=== PATIENT | male | born 1985 | race Two or more races ===

== ENCOUNTER 2020-04-27 13:19 | Outpatient (REF) | payer SELFPAY | END 2020-04-27 13:20 | disposition home or self-care (01) | LOC: HO.LAB 13:19 | PROVIDERS: Visit Provider Internal Medicine | DX: Z20.828 Contact with and (suspected) exposure to other viral communicable diseases (principal) | CPT/HCPCS: 87635 ==

== ENCOUNTER 2020-06-04 13:24 | Emergency (ER) | payer OTHER, SELFPAY ==
[2020-06-04 13:53] VITALS: BP 134/85; PULSE 81; RESP 18; TEMP 36.9; O2SAT 97; BMI 36.1
--- NOTE | 2020-06-04 14:22 | ED.HA ---
HPI - Headache General Chief Complaint: Headache Stated Complaint: headache,pain to neck Time Seen by Provider: 06/04/20 14:20 Source: patient Mode of arrival: ambulatory Limitations: no limitations History of Present Illness HPI Narrative: Patient presents to ED for right-sided headache going down to right occipital headache since yesterday. Patient states no photophobia, neck stiffness, fever, chills, loss of vision, eye pain, or, recent head trauma. MD elicited complaint: headache Related Data Previous Rx's Medication Instructions Recorded naproxen 500 mg PO BID PRN #20 tab 06/04/20 Allergies Allergy/AdvReac Type Severity Reaction Status Date / Time No Known Allergies Allergy Verified 06/04/20 13:55 Review of Systems Review of Systems: Yes all other systems are reviewed and are negative Constitutional: Constitutional: Reports as per HPI, Reports no additional constitutional complaints and Reports headache(s) Eyes: Eyes: Reports as per HPI and Reports no additional eye complaints ENT: Reports system reviewed and no additional complaints, except as documented, Reports as per HPI, Reports headache(s) and Reports neck pain Cardiovascular: Cardiovascular: Reports as per HPI and Reports no additional cardiovascular complaints Respiratory: Respiratory: Reports as per HPI and Reports no additional respiratory complaints Gastrointestinal: Gastrointestinal: Reports as per HPI and Reports no additional gastrointestinal complaints Musculoskeletal: Musculoskeletal: Reports no additional musculoskeletal complaints, Reports as per HPI and Reports neck pain Neurologic: Reports system reviewed and no additional complaints, except as documented, Reports as per HPI and Reports headache(s) Psychiatric: Psychiatric: Reports no additional psychiatric complaints and Reports as per HPI [facility], [facility] Past Medical History Medical History (Updated 06/04/20 @ 14:44 by KEVIN De Jesus) Anxiety Depression Social History Social History Advance Directives: No Advance Directives Information Provided: No Physical Exam Vital Signs: Vital Signs: Last Vital Signs Temp 98.5 F 06/04/20 13:53 Pulse 81 06/04/20 13:53 Resp 18 06/04/20 13:53 BP 134/85 06/04/20 13:53 Pulse Ox 97 06/04/20 13:53 Body Mass Index 36.1 Const: General: cooperative, healthy appearing, comfortable, no acute distress, well developed, alert, awake and Physically active Orientation/consciousness: oriented to time and patient oriented x3 HENMT: Head: Yes normal to inspection, Yes No palpable skull fracture present, Yes atraumatic, No Voss's sign, No contusion, No cranial bruits, No hematoma, No laceration, No occipital foramen tenderness, No palpable skull fracture, No raccoon eyes, No scalp lesion, No scalp tenderness, No Temporal artery tenderness present, No periorbital ecchymosis and No other Ears: hearing grossly normal bilaterally, external ears normal and TM's normal bilaterally General nose exam: Normal external nose present and Normal nares present Face and sinus: Yes normal facial exam and Yes sinuses nontender Mouth: Normal oral and palatal mucosa present, lip normal, tongue normal, oropharynx normal and moist mucous membranes Teeth and gingiva: dentition normal and gingiva normal Throat: Yes posterior oropharynx normal, Yes tonsils normal and Yes uvula midline Eyes: Other: negative for photophobia. General: appearance normal, both eyes and all related structures Neck: Neck: Yes normal visual inspection, Yes full ROM, Yes no lymphadenopathy, Yes no meningeal signs, Yes trachea midline, Yes supple and No tender Chest: Chest palpation & inspection: normal inspection of the chest, normal palpation of entire chest wall and no localized rib tenderness Resp: Effort & Inspection: normal respiratory effort and able to speak in complete sentences Auscultation: clear to auscultation bilaterally Cardio: Jugular venous distension: no JVD Heart sounds: S1 normal heart sound present and S2 normal heart sound present GI: Inspection: Yes normal to inspection and No abdominal wall ecchymosis Palpation (GI): Soft to palpation, not firm, nontender, no guarding and not rigid : General: No CVA tenderness and Yes no CVA tenderness Back/Spine/Pelvis: Back: no CVA tenderness, No CVA tenderness and No back tenderness Skin: General skin exam: no rashes or lesions noted Neuro: Other: Negative for facial droop. negative pronator drift. Cerebellar exams are intact. Normal gait. Negative neuro deficit. General: oriented to time, patient oriented x3, gait normal, no meningeal signs and CN's II-XI intact bilaterally Cranial nerves: Yes CN's II-XII intact bilaterally Course Course Course Narrative: History physical exam indicate tension headache. History physical exam does not indicate meningitis, migraine, tonsillitis, otitis media/externa, dental infection, glaucoma, or temporal arthritis. Patient denies any recent trauma and head CT not indicated. Negative for any neuro deficit. Patient also educated due to COVID headache can also be considered a new COVID symptom, so patient requested to be tested for COVID. Reevaluation(s) Reevaluation #1: Patient tested for COVID and will be discharged with NSAIDs for pain. Time: 14:41 MDM - Headache MDM Narrative Medical decision making narrative: tension headache Discharge Plan Discharge Clinical Impression: Tension headache Patient Disposition: Home, Self-Care Instructions: Tension Headache (ED) Additional Instructions: return to the ED for worsening headache, phonophobia, nausea, vomiting, neck stiffness, dizziness, fever, chills, paralysis of extremities, weakness, or any other concerning symptoms. Recommend 14 days self-isolation if covid test comes back positive. Prescriptions: New naproxen 500 mg tablet 500 mg PO BID PRN (Reason: pain) Qty: 20 RF: 0 Stand Alone Forms: Work/School Release Discharge Date/Time: 06/04/20 15:00 Print Language: Kinyarwanda
== END 2020-06-04 15:00 | disposition home or self-care (01) ==
PROVIDERS: Physician Assistant; Emergency Provider Emergency Medicine; PCP Internal Medicine
DX: G44.209 Tension-type headache, unspecified, not intractable (principal); Z20.828 Contact with and (suspected) exposure to other viral communicable diseases
CPT/HCPCS: 99283; U0003

== ENCOUNTER 2020-08-05 17:12 | Outpatient (REF) | payer OTHER, SELFPAY | END 2020-08-05 17:13 | disposition home or self-care (01) | LOC: HO.LAB 17:12 | PROVIDERS: Visit Provider Internal Medicine | DX: Z20.822 Contact with and (suspected) exposure to COVID-19 (principal) | CPT/HCPCS: 36415; C9803; U0003; U0005 ==

== ENCOUNTER 2021-02-21 18:51 | Emergency (ER) | payer OTHER, SELFPAY ==
--- NOTE | 2021-02-21 | ECG_ITS ---
Test Reason : CP Blood Pressure : / mmHG Vent. Rate : 092 BPM Atrial Rate : 092 BPM P-R Int : 156 ms QRS Dur : 076 ms QT Int : 346 ms P-R-T Axes : 047 011 000 degrees QTc Int : 427 ms Normal sinus rhythm Nonspecific T wave abnormality Abnormal ECG When compared with ECG of 08-APR-2018 16:05, QT has lengthened Referred By: Generic ED Physician Electronically Signed By:MARINA KISER
[2021-02-21 18:55] VITALS: BP 153/95; PULSE 97; RESP 16; TEMP 36.8; O2SAT 98; BMI 34.9
--- NOTE | 2021-02-21 21:53 | ED.CHESTPAIN ---
HPI - Chest Pain General Chief Complaint: Chest Pain Stated Complaint: cp Time Seen by Provider: 02/21/21 21:53 Source: patient Mode of arrival: ambulatory Limitations: no limitations History of Present Illness HPI narrative: Patient with no known coronary disease or risk factor nonsmoker no cocaine use complaining of pain midsternum for last 3 days off and on increases on palpation and movements of the left arm no radiation of pain no shortness of breath pain is sharp in character no nausea no vomiting no abdominal pain patient never had similar pain in the past Related Data Previous Rx's Medication Instructions Recorded naproxen 500 mg tablet 500 mg PO BID PRN #20 tab 06/04/20 ibuprofen 600 mg tablet 600 mg PO Q6H PRN #20 tab 02/21/21 Allergies Allergy/AdvReac Type Severity Reaction Status Date / Time No Known Allergies Allergy Verified 06/04/20 13:55 Review of Systems Review of Systems: Yes all other systems are reviewed and are negative PMFSH Past Medical History Medical History Anxiety Depression Social History Social History Advance Directives: No Advance Directives Information Provided: No Physical Exam Vital Signs: Vital Signs: Last Vital Signs Temp 98.3 F 02/21/21 18:55 Pulse 97 02/21/21 18:55 Resp 16 02/21/21 18:55 BP 133/80 02/21/21 22:18 Pulse Ox 98 02/21/21 18:55 Body Mass Index 34.9 Appearance: Alert. Oriented X3. No acute distress. ENT: Pharynx normal. Oral Mucosa moist Neck: Normal inspection. Neck supple. CVS: Normal heart rate and rhythm. Pulses normal. Respiratory: No respiratory distress. Equal air entry bilateral, no wheezing/rales/rhonchi left 2nd IC space tenderness Abdomen: Soft and nontender. Bowel sounds are present, no mass palpable, no CVA tenderness Skin: Skin warm and dry. Normal skin color. Normal skin turgor. Extremities: No lower extremity edema. No calf tenderness Neuro: Oriented X 3. No motor deficit. No sensory deficit.No cerebellar signs , cranial nerves II-XII intact MDM - Chest Pain MDM Narrative Medical decision making narrative: Patient has atypical chest pain local tenderness on left 2nd intercostal space recheck blood pressure was 135/88 heart score of 0 EKG without any acute changes will discharge patient home ECG Data ECG #1: Attestation: I personally reviewed and interpreted this ECG as follows: Interpretation: Normal sinus rhythm heart rate 92 beats per minute normal intervals normal axis no acute ST-T changes no acute ischemic Scores Heart Score History: -0- slightly suspicious ECG: -0- normal Age: -0- < or = 45 Risk factory: -0- no risk factors known Troponin: -0- < or = normal limit Score: 0 Risk: 1.7% Discharge Plan Discharge Clinical Impression: Costalchondritis Patient Disposition: Home, Self-Care Instructions: Costochondritis (ED) Additional Instructions: Your chest pain is likely from inflammation of the cartilage Take ibuprofen as prescribed Report to the ER/PCP if pain gets worse/shortness of breath/change of character of the pain Prescriptions: New ibuprofen 600 mg tablet 600 mg PO Q6H PRN (Reason: pain) Qty: 20 RF: 0 No Action naproxen 500 mg tablet 500 mg PO BID PRN (Reason: pain) Qty: 20 RF: 0 Interventions: ED Discharge Assessment Last Done: 02/21/21 22:14 Discharge Date/Time: 02/21/21 22:15
[2021-02-21] MEDS: Ibuprofen 600 MG TABLET PO (22:11)
--- NOTE | 2021-02-21 22:14 | PC.NURSE ---
PT AWAKE,ALERT AND ORIENTED X 3. SKIN WARM AND DRY. RESP UNLABORED. DENIES N/V. C/O 3/10 CHEST WALL PAIN. PT EVALUATED BY PROVIDER. PLAN IS FOR DC HOME. PT AGREEABLE TO PLAN. STATES NO QUESTIONS.
[2021-02-21 22:18] VITALS: BP 133/80
== END 2021-02-21 22:15 | disposition home or self-care (01) ==
PROVIDERS: Emergency Provider Internal Medicine; PCP Internal Medicine
DX: R07.81 Pleurodynia (principal); M94.0 Chondrocostal junction syndrome [Tietze]; Z79.899 Other long term (current) drug therapy
CPT/HCPCS: 93005; 99283